=== PATIENT | female | born 1995 | race Caucasian/White ===

== ENCOUNTER 2017-11-03 22:26 | Emergency (ER) | payer OTHER ==
[~2017-11-03] VITALS: Ht 165.1 cm; Wt 50.4 kg
[~2017-11-03 22:26] MED LIST: CIPRO500 MG PO; GUAIATUSSIN AC10 ML PO; NEXPLANON68 MG SUB-Q; NORCO 5-325 TA1 EACH PO; PRENATABS RX T1 EACH PO; ZITHROMAX250 MG PO; ZOFRAN ODT4 MG PO; ZOFRAN ODT8 MG PO
== END 2017-11-04 02:26 | disposition home or self-care (01) ==
LOC: ED 22:26
DX: O99.89 Other specified diseases and conditions complicating pregnancy, childbirth and the puerperium (principal); R10.30 Lower abdominal pain, unspecified; O99.330 Smoking (tobacco) complicating pregnancy, unspecified trimester; F17.200 Nicotine dependence, unspecified, uncomplicated
CPT/HCPCS: 76801; 76817; 81001; 84702; 84703; 85025; 99284

== ENCOUNTER 2017-11-10 17:10 | Emergency (ER) | payer OTHER ==
[~2017-11-10] VITALS: Ht 165.1 cm; Wt 54.4 kg
[2017-11-10] MEDS ORDERED: PRENATAL VITAM1 EAC8 PO (17:35)
== END 2017-11-10 19:18 | disposition home or self-care (01) ==
LOC: ED 17:10
DX: J06.9 Acute upper respiratory infection, unspecified (principal); F17.200 Nicotine dependence, unspecified, uncomplicated
CPT/HCPCS: 99282

== ENCOUNTER 2018-01-19 20:38 | Emergency (ER) | payer OTHER ==
[~2018-01-19] VITALS: Ht 165.1 cm; Wt 54.4 kg
[~2018-01-19 20:38] MED LIST changes: +PRENATAL VITAM1 EAC8 PO
[2018-01-19] MEDS ORDERED: PROMETHAZINE HC25 M1 PO (20:49)
[2018-01-19] MEDS ORDERED: KEFLEX500 MG PO (21:58)
[2018-01-19] MEDS ORDERED: ZOFRAN ODT4 MG PO (21:58)
== END 2018-01-19 22:24 | disposition home or self-care (01) ==
LOC: ED 20:38
DX: O23.42 Unspecified infection of urinary tract in pregnancy, second trimester (principal); O99.332 Smoking (tobacco) complicating pregnancy, second trimester; F17.200 Nicotine dependence, unspecified, uncomplicated; Z79.899 Other long term (current) drug therapy; Z3A.16 16 weeks gestation of pregnancy
CPT/HCPCS: 80053; 81001; 85025; 96374; 99283; J2405

== ENCOUNTER 2024-02-03 02:35 | Emergency (ER) | payer OTHER ==
[~2024-02-03] VITALS: Ht 165.1 cm; Wt 55.0 kg
[~2024-02-03 02:35] MED LIST changes: +KEFLEX500 MG PO; +PROMETHAZINE HC25 M1 PO
[2024-02-03 04:00] VITALS: BP 123/87
== END 2024-02-03 04:00 | disposition other institution, planned readmission (95) ==
LOC: ED 02:35
DX: T18.8XXA Foreign body in other parts of alimentary tract, initial encounter (principal); F17.200 Nicotine dependence, unspecified, uncomplicated
CPT/HCPCS: 36415; 74018; 84703; 99284-25

== ENCOUNTER 2024-02-19 21:11 | Emergency (ER) | payer OTHER ==
[~2024-02-19] VITALS: Ht 165.1 cm; Wt 58.0 kg
--- OUTSIDE RECORDS SUMMARY | 2024-02-19 21:13 | XMS ---
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 ED/UCC VISIT TRACKING (12 MO.) 02/19/2024 21:12 ROSALINDA Crump TYPE: Emergency COMPLAINT: - WOUND CHECK 02/03/2024 02:36 ROSALINDA Crump TYPE: Emergency COMPLAINT: - SWALLOWED FOREIGN OBJECTS DIAGNOSES: - Foreign body in other parts of alimentary tract, initial encounter - Nicotine dependence, unspecified, uncomplicated 12/20/2023 17:45 Karime BERTRAND TYPE: Emergency COMPLAINT: - OTH SPEC DISORDERS TEETH SUPP STRCT - Toothache_TOOTH PAIN DIAGNOSES: 0. Other specified disorders of teeth and supporting structures 1. Other specified disorders of teeth and supporting structures 07[facility]31/2023 16:[facility] COMPLAINT: - DIARRHEA UNSPECIFIED - NAUSEA WITH VOMITING UNSPECIFIED - UNSPECIFIED ABDOMINAL PAIN - Walk In_STOMACH PAIN/VOMITING DIAGNOSES: 0. Unspecified abdominal pain 1. Urinary tract infection, site not specified 5. Viral infection, unspecified 6. Nausea with vomiting, unspecified INPATIENT VISIT TRACKING (12 MO.) No inpatient visits to display in this time frame [email or web address]
[2024-02-19 21:37] VITALS: BP 145/107
== END 2024-02-19 21:41 | disposition home or self-care (01) ==
LOC: ED 21:11
DX: S70.312A Abrasion, left thigh, initial encounter (principal); S60.419A Abrasion of unspecified finger, initial encounter; W54.0XXA Bitten by dog, initial encounter; F17.200 Nicotine dependence, unspecified, uncomplicated
CPT/HCPCS: 99283

== ENCOUNTER 2024-02-22 12:53 | Emergency (ER) | payer OTHER ==
[~2024-02-22] VITALS: Ht 165.1 cm; Wt 53.4 kg
--- OUTSIDE RECORDS SUMMARY | 2024-02-22 12:57 | XMS ---
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 Care Guidelines exist for the following facilities: [facility] ( 06/06/2019 ) [place] VISIT COUNT (12 MO.) [address] TOTAL 5 NOTE: Visits indicate total known visits. ED/UCC VISIT TRACKING (12 MO.) 02/22/2024 12:54 ROSALINDA M[place] TYPE: Emergency COMPLAINT: - ALTERED LOC 02/19/2024 21:12 ROSALINDA Crump TYPE: Emergency COMPLAINT: - WOUND CHECK 02/03/2024 02:36 ROSALINDA M[place] TYPE: Emergency COMPLAINT: - SWALLOWED FOREIGN OBJECTS DIAGNOSES: - Foreign body in other parts of alimentary tract, initial encounter - Nicotine dependence, unspecified, uncomplicated 12/20/2023 17:45 Karime BERTRAND TYPE: Emergency COMPLAINT: - OTH SPEC DISORDERS TEETH SUPP STRCT - Toothache_TOOTH PAIN DIAGNOSES: 0. Other specified disorders of teeth and supporting structures 1. Other specified disorders of teeth and supporting structures 07/31/2023 16:10 Karime Renteria [facility] TYPE: Emergency COMPLAINT: - DIARRHEA UNSPECIFIED - NAUSEA WITH VOMITING UNSPECIFIED - UNSPECIFIED ABDOMINAL PAIN - Walk In_STOMACH PAIN/VOMITING DIAGNOSES: 0. Unspecified abdominal pain 1. Urinary tract infection, site not specified 5. Viral infection, unspecified 6. Nausea with vomiting, unspecified INPATIENT VISIT TRACKING (12 MO.) No inpatient visits to display in this time frame [email or web address]
[2024-02-22 15:17] LABS: BASOPHILS 0.3 % (0-2); EOSINOPHILS 0.1 % (0-6); HEMOGLOBIN 12.2 g/dL (12.0-18.0); LYMPHOCYTES 16.2 % (24-44); MCH 31.5 (27-36); MCHC 33.8 g/dl (30-36); MONOCYTES 4.6 % (0-12); NEUTROPHILS 78.8 % (39-80); PLATELET COUNT 240 K/uL (140-440); RBC 3.87 M/ul (4.3-5.7)
[2024-02-22 15:20] LABS: BILIRUBIN, URINE NEGATIVE (negative); BLOOD/HGB, URINE NEGATIVE (Negative); KETONE, URINE TRACE (Negative); LEUK ESTERASE, URINE NEGATIVE (negative); NITRITE, URINE NEGATIVE (negative); PH, URINE 5.5 (5-7)
[2024-02-22 15:36] LABS: AMPHETAMINES, URINE POSITIVE (NEGATIVE); BARBITURATES, URINE NEGATIVE (NEGATIVE); BENZODIAZEPINE, URINE NEGATIVE (NEGATIVE); BUPRENORPHINE, URINE NEGATIVE (NEGATIVE); CANNABINOID, URINE POSITIVE (NEGATIVE); COCAINE, URINE NEGATIVE (NEGATIVE); ECSTASY, URINE NEGATIVE (NEGATIVE); FENTANYL, URINE POSITIVE (NEGATIVE); METHADONE, URINE NEGATIVE (NEGATIVE); OPIATES, URINE NEGATIVE (NEGATIVE); OXYCODONE, URINE NEGATIVE (NEGATIVE); PHENCYCLIDINE, URINE NEGATIVE (NEGATIVE)
[2024-02-22 15:40] LABS: ACETAMINOPHEN 0 ug/mL (10-30); ALCOHOL, MEDICAL <3 ng/dL (<3); SALICYLATE 1.3 mg/dL (2.8-20.0); TSH, 3RD GENERATION 1.613 uIU/mL (0.358-3.740)
[2024-02-22 15:59] LABS: ALBUMIN 3.9 g/dL (3.4-5.0); ALBUMIN/GLOBULIN RATIO 1.3 (1.1-2.4); BILIRUBIN, TOTAL 0.6 ng/dL (0.2-1.0); BUN/CREATININE RATIO 17.75 (6.0-28.6); CREATININE, SERUM 1.07 mg/dL (0.55-1.02); PROTEIN, TOTAL 6.9 g/dL (6.4-8.2)
[2024-02-22 16:05] LABS: CALCIUM 8.8 mg/dL (8.5-10.1)
[2024-02-22 18:28] VITALS: BP 114/70
== END 2024-02-22 18:30 | disposition home or self-care (01) ==
LOC: ED 12:53
PROVIDERS: Emergency Medicine
DX: F11.10 Opioid abuse, uncomplicated (principal); F12.10 Cannabis abuse, uncomplicated; F15.10 Other stimulant abuse, uncomplicated; F17.200 Nicotine dependence, unspecified, uncomplicated
CPT/HCPCS: 36415; 80053; 80307; 81003; 84443; 84703; 85025; 99283; G0480

== ENCOUNTER 2024-03-15 16:44 | Emergency (ER) | payer OTHER ==
[~2024-03-15] VITALS: Ht 165.1 cm; Wt 56.0 kg
[~2024-03-15 16:44] MED LIST changes: +DOXYCYCLINE HY100 MG PO; +ISENTRESS400 MG PO; +METRONIDAZOLE500 MG PO; +TRUVADA 100 MG1 EACH PO
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
[2024-03-15] MEDS ORDERED: HALOPERIDOL LACTATE 5 MG/ML VIAL IM ONE (18:45)
[2024-03-15] MEDS ORDERED: LORazepam 2 MG/ML VIAL IM ONE (18:45)
[2024-03-15] MEDS ORDERED: diphenhydrAMINE HCL 50 MG/ML VIAL IM ONE (18:45)
[2024-03-15 19:00] LABS: BASOPHILS 0.5 % (0-2)
[2024-03-15 19:04] LABS: EOSINOPHILS 0.2 % (0-6); HEMATOCRIT 42.4 % (35.0-50.0); HEMOGLOBIN 13.8 g/dL (12.0-18.0); LYMPHOCYTES 22.1 % (24-44); MCH 30.9 (27-36); MCHC 32.6 g/dl (30-36); MCV 94.7 fl (81-99); MONOCYTES 6.1 % (0-12); NEUTROPHILS 71.1 % (39-80); PLATELET COUNT 416 K/uL (140-440); RBC 4.48 M/ul (4.3-5.7); RDW 12.7 (10.5-15.0)
[2024-03-15 19:05] LABS: BILIRUBIN, URINE NEGATIVE (negative); BLOOD/HGB, URINE NEGATIVE (Negative); KETONE, URINE NEGATIVE (Negative); LEUK ESTERASE, URINE NEGATIVE (negative); NITRITE, URINE NEGATIVE (negative); PH, URINE 6.5 (5-7)
[2024-03-15 19:20] LABS: AMPHETAMINES, URINE POSITIVE (NEGATIVE); BARBITURATES, URINE NEGATIVE (NEGATIVE); BENZODIAZEPINE, URINE NEGATIVE (NEGATIVE); BUPRENORPHINE, URINE NEGATIVE (NEGATIVE); CANNABINOID, URINE POSITIVE (NEGATIVE); COCAINE, URINE NEGATIVE (NEGATIVE); ECSTASY, URINE NEGATIVE (NEGATIVE); FENTANYL, URINE NEGATIVE (NEGATIVE); METHADONE, URINE NEGATIVE (NEGATIVE); OPIATES, URINE NEGATIVE (NEGATIVE); OXYCODONE, URINE NEGATIVE (NEGATIVE); PHENCYCLIDINE, URINE NEGATIVE (NEGATIVE)
[2024-03-15 19:23] LABS: ACETAMINOPHEN 0 ug/mL (10-30); ALBUMIN 4.1 g/dL (3.4-5.0); ALBUMIN/GLOBULIN RATIO 1.17 (1.1-2.4); ALCOHOL, MEDICAL 207 ng/dL (<3); ALKALINE PHOSPHATASE 131 U/L (46-116); ALT (SGPT) 57 U/L (14-59); ANION GAP 12.7 (7-21); AST (SGOT) 79 U/L (15-37); BILIRUBIN, TOTAL 0.4 ng/dL (0.2-1.0); BUN/CREATININE RATIO 9.34 (6.0-28.6); CALCIUM 9.4 mg/dL (8.5-10.1); CARBON DIOXIDE 31 mmol/L (21-32); CHLORIDE 106 mmol/L (98-107); CREATININE, SERUM 1.07 mg/dL (0.55-1.02); GLOMERULAR FILTRATION RATE,EST 73 mL/min (>60); POTASSIUM 3.7 mmol/L (3.5-5.1); PROTEIN, TOTAL 7.6 g/dL (6.4-8.2); SALICYLATE 0.8 mg/dL (2.8-20.0); TSH, 3RD GENERATION 1.408 uIU/mL (0.358-3.740); UREA NITROGEN 10 mg/dL (7-18)
[2024-03-15 21:27] VITALS: BP 111/81
== END 2024-03-15 21:27 | disposition home or self-care (01) ==
LOC: ED 16:44
PROVIDERS: Emergency Medicine
DX: F19.10 Other psychoactive substance abuse, uncomplicated (principal); F17.200 Nicotine dependence, unspecified, uncomplicated
CPT/HCPCS: 36415; 80053; 80307; 81003; 84443; 84703; 85025; 96372; 99284-25; G0480; J1200; J1630; J2060

== ENCOUNTER 2024-08-15 22:40 | Emergency (ER) | payer OTHER ==
[~2024-08-15] VITALS: Ht 165.1 cm
--- OUTSIDE RECORDS SUMMARY | ~2024-08-15 | XMS | Continuity of Care Document ---
Demographics + + + | Address | [address] | | | [place] [address] | + + + | Preferred Language | Unknown | + + + | Marital Status | Unknown | + + + | Cheondoism Affiliation | Unknown | + + + | Race | White | + + + | Ethnic Group | Not or | + + + Author + + + | Author | [place] | + + + | Organization | [facility] | + + + | Address | [address] | | | [place] [address] | + + + | Phone | | + + + Care Team Providers + + + + | Care Webmaster Name | Role | Phone | + + + + Unavailable | Unavailable | + + + + Allergies No information. Encounters No information. Functional Status No information. Immunizations No information. Medications No information. Problems + + + + | date | description | facility | + + + + | 2024-06-27 21:49:22 | Other prison (current) | [facility] | | | drug therapy | | + + + + | 2024-07-06 21:46:54 | Syphilis, unspecified | [facility] | + + + + | 2024-07-06 21:46:54 | Chronic viral hepatitis C | [facility] | + + + + | 2024-07-06 21:46:54 | Unspecified viral | [facility] | | | hepatitis C without hepatic | | | | coma | | + + + + | 2024-07-06 21:46:54 | Contact with and | [facility] | | | (suspected) exposure to | | | | viral hepatitis | | + + + + Procedures No information. Results/Labs No information. Social History +--------+ + + | date | description | facility | +--------+ + + Vital Signs No information."
--- OUTSIDE RECORDS SUMMARY | 2024-08-15 22:44 | XMS ---
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 ED/UCC VISIT TRACKING (12 MO.) 08/15/2024 22:41 [facility]ALINDA [facility] TYPE: Emergency COMPLAINT: - SWELLING 08/15/2024 14:20 ROSALINDA [facility] [place] TYPE: Emergency COMPLAINT: - SKIN PROBLEM 03/15/2024 16:45 ROSALINDA M[place] TYPE: Emergency COMPLAINT: - AMS DIAGNOSES: - Nicotine dependence, unspecified, uncomplicated - Other psychoactive substance abuse, uncomplicated - Restlessness and agitation 02/28/2024 20:31 ROSALINDA M[place] TYPE: Emergency [...] bite, right thigh, initial encounter 02/03/2024 02:[address] [facility] [address] [facility] TYPE: Emergency COMPLAINT: - SWALLOWED FOREIGN OBJECTS DIAGNOSES: - Foreign body in other parts of alimentary tract, initial encounter - Nicotine dependence, unspecified, uncomplicated 12/20/2023 17:45 Karime BERTRAND TYPE: Emergency COMPLAINT: - OTH SPEC DISORDERS TEETH SUPP STRCT - Toothache_TOOTH PAIN DIAGNOSES: 0. Other specified disorders of teeth and supporting structures 1. Other specified disorders of teeth and supporting structures INPATIENT VISIT TRACKING (12 MO.) No inpatient visits to display in this time frame [email or web address]
[2024-08-15 23:10] VITALS: BP 137/82
[2024-08-15] MEDS ORDERED: DOXYCYCLINE HYCLATE 100 MG HOME.PACK PO ONE (23:15)
== END 2024-08-15 23:11 | disposition home or self-care (01) ==
LOC: ED 22:40
DX: L03.114 Cellulitis of left upper limb (principal); L03.113 Cellulitis of right upper limb; F17.200 Nicotine dependence, unspecified, uncomplicated
CPT/HCPCS: 99283; A9270

== ENCOUNTER 2024-08-23 00:16 | Emergency (ER) | payer OTHER ==
[~2024-08-23] VITALS: Ht 165.1 cm; Wt 59.9 kg
--- OUTSIDE RECORDS SUMMARY | ~2024-08-23 | XMS | Continuity of Care Document ---
Demographics + + + | Address | [address] | | | [place] [address] | + + + | Preferred Language | Unknown | + + + | Marital Status | Unknown | + + + | Yarsanism Affiliation | Unknown | + + + | Race | White | + + + | Ethnic Group | Not or | + + + Author + + + | Author | [facility] | + + + | Organization | [facility] | + + + | Address | [address] | | | [place] [address] | + + + | Phone | | + + + Care Team Providers + + + + | Care E M Assembler Name | Role | Phone | + + + + Unavailable | Unavailable | + + + + Allergies No information. Encounters No information. Functional Status No information. Immunizations No information. Medications No information. Problems + + + + | date | description | facility | + + + + | 2024-06-27 21:49:22 | Other [facility]current) | [facility] | | | drug [...]
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
[2024-08-23] MEDS ORDERED: DOXYCYCLINE HYCLATE 100 MG HOME.PACK PO ONE (02:00)
[2024-08-23 02:02] VITALS: BP 135/87
== END 2024-08-23 02:04 | disposition home or self-care (01) ==
LOC: ED 00:16
DX: S90.511A Abrasion, right ankle, initial encounter (principal); L08.9 Local infection of the skin and subcutaneous tissue, unspecified; F17.200 Nicotine dependence, unspecified, uncomplicated; Z59.00 Homelessness unspecified; X58.XXXA Exposure to other specified factors, initial encounter
CPT/HCPCS: 99283; A9270